=== PATIENT | female | born 1970 | race Caucasian/White ===

== ENCOUNTER 2016-11-23 23:01 | Emergency (ER) | payer OTHER ==
[2016-11-24 01:43] LABS: HEMOGLOBIN 13.4 gm/dl (12.3-15.3); RED BLOOD COUNT 4.33 M/UL (4.00-5.10); WHITE BLOOD COUNT 7.9 K/UL (4.5-11.0)
[2016-11-24 02:02] LABS: BUN/CREATININE RATIO 16 (0-10)
== END 2016-11-24 09:55 | disposition home or self-care (01) ==
LOC: ER1 23:01
PROVIDERS: Student in an Organized Health Care Education/Training Program
DX: R07.89 Other chest pain (principal); R10.9 Unspecified abdominal pain; I47.1 Supraventricular tachycardia; I49.3 Ventricular premature depolarization; Z98.51 Tubal ligation status
CPT/HCPCS: 36415; 71010; 80053; 81001; 82550; 82553; 83690; 83874; 84484; 84703; 85025; 93005; 96360; 99285; J7050; Q9962

== ENCOUNTER 2020-08-16 16:47 | Emergency (ER) | payer OTHER ==
[~2020-08-16 16:47] MED LIST: AEROCHAMBER1 EA XX; NORCO 5-325 TA1 EACH PO; PHENERGAN 25 MG25 M1 PO; PREDNISONE20 MG PO; VENTOLIN HFA 66.7 GM INH; ZOFRAN4 MG PO
[2020-08-16 20:03] LABS: HEMOGLOBIN 13.3 gm/dl (12.3-15.3); RED BLOOD COUNT 4.28 M/UL (4.00-5.10); WHITE BLOOD COUNT 8.7 K/UL (4.5-11.0)
[2020-08-16 20:29] LABS: BUN/CREATININE RATIO 10 (0-10)
[2020-08-17] MEDS ORDERED: CELEBREX200 MG PO (03:06)
[2020-08-17] MEDS ORDERED: COLACE 100MG C100 MG PO (03:06)
[2020-08-17] MEDS ORDERED: PROTONIX20 MG PO (03:06)
[2020-08-17] MEDS ORDERED: BENTYL 20MG TAB20 MG PO ×2 (03:13)
== END 2020-08-17 03:12 | disposition home or self-care (01) ==
LOC: ER1 16:47
PROVIDERS: Emergency Medicine
DX: R10.12 Left upper quadrant pain (principal); Z98.51 Tubal ligation status
CPT/HCPCS: 71045; 80053; 81001; 82550; 82553; 83605; 83690; 83874; 84484; 85025; 85379; 85610; 85730; 93005; 99284; J1642; Q9967

== ENCOUNTER → 2020-11-21 | Outpatient (CLI) | payer OTHER ==
[~2020-11-21] MED LIST changes: +BENTYL 20MG TAB20 MG PO; +CELEBREX200 MG PO; +COLACE 100MG C100 MG PO; +PROTONIX20 MG PO
== END ==
LOC: KOH-I 12:53
DX: R06.00 Dyspnea, unspecified (principal)
CPT/HCPCS: 71046

== ENCOUNTER → 2021-01-26 | Outpatient (CLI) | payer OTHER | LOC: SLEEP 13:23 | DX: R53.83 Other fatigue (principal); R06.83 Snoring | CPT/HCPCS: 95810 ==

== ENCOUNTER → 2021-06-20 | Outpatient (CLI) | payer OTHER | LOC: KOH-I 14:00 | DX: R13.10 Dysphagia, unspecified (principal); E04.2 Nontoxic multinodular goiter | CPT/HCPCS: 76536 ==

== ENCOUNTER 2021-09-17 15:47 | Emergency (ER) | payer OTHER ==
[2021-09-17] MEDS ORDERED: CYCLOBENZAPRINE10 MG PO (18:58)
[2021-09-17] MEDS ORDERED: TORADOL 10 MG T10 MG PO (18:58)
== END 2021-09-17 19:13 | disposition home or self-care (01) ==
LOC: ER1 15:47
DX: S39.012A Strain of muscle, fascia and tendon of lower back, initial encounter (principal); M51.27 Other intervertebral disc displacement, lumbosacral region; I10 Essential (primary) hypertension; J45.909 Unspecified asthma, uncomplicated; Z88.0 Allergy status to penicillin; X58.XXXA Exposure to other specified factors, initial encounter
CPT/HCPCS: 72131; 73502; 81001; 84703; 85379; 87086; 96372; 99284; J1885

== ENCOUNTER 2021-12-01 00:32 | Emergency (ER) | payer OTHER ==
[~2021-12-01 00:32] MED LIST changes: +CYCLOBENZAPRINE10 MG PO; +TORADOL 10 MG T10 MG PO
[2021-12-01 01:46] LABS: HEMOGLOBIN 12.6 gm/dl (12.3-15.3); RED BLOOD COUNT 4.07 M/UL (4.00-5.10); WHITE BLOOD COUNT 7.2 K/UL (4.5-11.0)
[2021-12-01 02:13] LABS: BUN/CREATININE RATIO 11 (0-10)
[2021-12-01] MEDS ORDERED: MEDROL DOSEPAK 24 MG PO (07:13)
[2021-12-01] MEDS ORDERED: PROVENTIL HFA6.7 GM INH (07:13)
[2021-12-01] MEDS ORDERED: ALBUTEROL1.25 MG/3 INH (07:43)
== END 2021-12-01 07:55 | disposition home or self-care (01) ==
LOC: ER1 00:32
PROVIDERS: Physician Assistant
DX: J40 Bronchitis, not specified as acute or chronic (principal); E87.6 Hypokalemia; R10.31 Right lower quadrant pain; R10.813 Right lower quadrant abdominal tenderness; R10.816 Epigastric abdominal tenderness; R07.89 Other chest pain
CPT/HCPCS: 71045; 80053; 81001; 82550; 82553; 83690; 84484; 84703; 85025; 85379; 87086; 93005; 94664; 96374; 99285; C9113; J1885; Q9967